=== PATIENT | female | born 1990 | race African-American/Black ===

== ENCOUNTER 2020-10-11 17:40 | Inpatient (IN) | payer OTHER ==
[2020-10-11] MEDS ORDERED: PROMETHAZINE HCL 25 MG/1 ML VIAL IVPB PRN (18:18)
[2020-10-11] MEDS ORDERED: DINOPROSTONE 10 MG VAGINAL SUPPOSITORY VG ONE (18:18)
[2020-10-11] MEDS ORDERED: ONDANSETRON 4 MG/2 ML VIAL IM PRN (18:18)
[2020-10-11] MEDS ORDERED: BUTORPHANOL TARTRATE 1 MG/ML VIAL IVPB PRN (18:18)
[2020-10-11 19:00] VITALS: BMI 32.5
[2020-10-11 20:03] LABS: BASO % 0.2 % (0-2.0); HEMATOCRIT 37.1 % (32.4-45.2); HEMOGLOBIN 12.2 GM/dL (10.7-15.3); LYMPH % 13.5 % (8-40); MCH 27.9 pg (25.7-33.7); MCHC 32.9 g/dl (32.0-36.0); MEAN CELL VOLUME 84.8 fl (80-96); MEAN PLT VOLUME 10.3 fl (7.5-11.1); MONO % 6.2 % (3.8-10.2); NEUT % 79.1 % (42.8-82.8); PLATELET COUNT 221 K/MM3 (134-434); RBC 4.38 M/mm3 (3.60-5.2); RDW 16.1 % (11.6-15.6); WHITE BLOOD COUNT 10.3 K/mm3 (4.0-10.0)
[2020-10-11 20:12] LABS: INR 1.03 (0.83-1.09); PROTHROMBIN TIME (PATIENT) 12.6 SEC (9.7-13.0)
[2020-10-11 20:15] LABS: ACTIVATED PTT 31.5 SECONDS (25.2-36.5)
[2020-10-11 20:22] LABS: POTASSIUM 4.7 mmol/L (3.5-5.1)
[2020-10-11 20:24] LABS: BLOOD UREA NITROGEN 8.4 mg/dL (7-18); CALCIUM 9.2 mg/dL (8.5-10.1)
[2020-10-11 20:27] LABS: CREATININE 0.6 mg/dL (0.55-1.3)
[2020-10-12] MEDS: ELECTROLYTE-148 SOLN 1,000 ML IV SCH
[2020-10-12 03:33] LABS: COCAINE, UR NEGATIVE ng/ml (CUTOFF=300)
[2020-10-12 03:38] LABS: METHADONE, UR NEGATIVE ng/ml (CUTOFF=300); OPIATES, URI NEGATIVE ng/ml (CUTOFF=300); PHENCYCLIDINE,URINE NEGATIVE ng/ml (CUTOFF=25); URINE AMPHETAMINES NEGATIVE ng/ml (CUTOFF=500); URINE BARBITURATES NEGATIVE ng/ml (CUTOFF=200); URINE BENZODIAZEPINES NEGATIVE ng/ml (CUTOFF=200)
[2020-10-12] MEDS ORDERED: DINOPROSTONE 10 MG VAGINAL SUPPOSITORY VG ONE (09:45)
[2020-10-12] MEDS ORDERED: CITRIC ACID/SODIUM CITRATE 30 ML UNIT-DOSE CUP PO ONE (20:42)
[2020-10-12] MEDS ORDERED: ELECTROLYTE-148 SOLN 1,000 ML IV SCH (20:45)
[2020-10-12] MEDS ORDERED: morphine SULFATE/PF 0.5 MG/ML (2cc Syringe - QUVA) ONE (21:16)
[2020-10-12] MEDS ORDERED: OXYTOCIN 20 UNITS in 0.9% NS 20 UNIT/1,000 ML INFUS.BAG IV ONE (22:27)
[2020-10-12 22:41] LABS: CORD HCO3 26.1 mmHg (20-29); CORD PCO2 64.9 mmHg (30-78); CORD pH 7.222 (7.14-7.44)
[2020-10-12 22:43] LABS: CORD BASE EXCESS -1.8 mmol/L (0-2); CORD HCO3 25.7 mmHg (20-29); CORD pH 7.295 (7.14-7.44)
[2020-10-12] MEDS ORDERED: WITCH HAZEL 50% (TUCKS) 40 PAD/JAR PAD TP PRN (23:08)
[2020-10-12] MEDS ORDERED: diphenhydrAMINE HCL 25 MG CAPSULE (FP) PO PRN (23:08)
[2020-10-12] MEDS ORDERED: METHYLERGONOVINE MALEATE 0.2 MG/1 ML AMP IM PRN (23:08)
[2020-10-12] MEDS ORDERED: BENZOCAINE 20% 57 GM BOTTLE TP PRN (23:08)
[2020-10-12] MEDS ORDERED: oxyCODONE HCL 5 MG TABLET PO PRN (23:08)
[2020-10-12] MEDS ORDERED: BENZOCAINE 28 GM HEMORRHOIDAL OINTMENT PR PRN (23:08)
[2020-10-12] MEDS ORDERED: OXYTOCIN 20 UNITS in 0.9% NS 20 UNIT/1,000 ML INFUS.BAG IV SCH (23:15)
[2020-10-12] MEDS ORDERED: DEXTROSE 5%-LACTATED RINGERS 1,000 ML IV SCH (23:15)
[2020-10-12] MEDS ORDERED: IBUPROFEN 800 MG/8 ML IJ IVPB ONE (23:40)
[2020-10-12] MEDS: IBUPROFEN 800 MG/8 ML IJ IVPB PRN (23:45)
[2020-10-13] MEDS: ELECTROLYTE-148 SOLN 1,000 ML IV SCH (00:46)
[2020-10-13] MEDS: OXYTOCIN 20 UNITS in 0.9% NS 20 UNIT/1,000 ML INFUS.BAG IV SCH ×2 (00:47→05:59)
[2020-10-13] MEDS ORDERED: ONDANSETRON 4 MG/2 ML VIAL IVPUSH PRN (00:48)
[2020-10-13] MEDS: CEFAZOLIN 1 GM/D5W 1 GM/50 ML BAG IVPB SCH ×2 (02:05→10:37)
[2020-10-13] MEDS ORDERED: ACETAMINOPHEN 1000 MG/100 ML VIAL (NON FORMULARY) IVPB ONE (03:15)
[2020-10-13] MEDS: IBUPROFEN 800 MG/8 ML IJ IVPB PRN (05:58)
[2020-10-13] MEDS: SIMETHICONE 80 MG TAB.CHEW (FP) PO PRN ×3 (08:50→21:18)
[2020-10-13] MEDS: ENOXAPARIN NA (PORCINE) 40 MG/0.4 ML DISP.SYRIN SQ SCH (10:36)
[2020-10-13 13:39] LABS: BASO % 0.3 % (0-2.0); EOS % 0.8 % (0-4.5); HEMATOCRIT 33.4 % (32.4-45.2); HEMOGLOBIN 11.1 GM/dL (10.7-15.3); LYMPH % 13.4 % (8-40); MCH 27.9 pg (25.7-33.7); MCHC 33.3 g/dl (32.0-36.0); MEAN CELL VOLUME 83.8 fl (80-96); MEAN PLT VOLUME 9.2 fl (7.5-11.1); MONO % 6.7 % (3.8-10.2); NEUT % 78.8 % (42.8-82.8); PLATELET COUNT 197 K/MM3 (134-434); RBC 3.99 M/mm3 (3.60-5.2); RDW 16.1 % (11.6-15.6); WHITE BLOOD COUNT 9.7 K/mm3 (4.0-10.0)
[2020-10-13] MEDS: ACETAMINOPHEN 325 MG TABLET (FP) PO PRN ×2 (14:00→21:17)
[2020-10-13] MEDS: IBUPROFEN 600 MG TABLET (FP) PO PRN ×2 (14:00→21:17)
[2020-10-13] MEDS: oxyCODONE HCL 5 MG TABLET PO PRN (22:08)
[2020-10-13] MEDS ORDERED: BISACODYL 10 MG SUPP.RECT PR PRN (23:09)
[2020-10-14] MEDS: ACETAMINOPHEN 325 MG TABLET (FP) PO PRN ×4 (02:08→21:23)
[2020-10-14] MEDS: SIMETHICONE 80 MG TAB.CHEW (FP) PO PRN ×4 (02:08→21:21)
[2020-10-14] MEDS: IBUPROFEN 600 MG TABLET (FP) PO PRN ×3 (03:38→21:22)
[2020-10-14] MEDS: ENOXAPARIN NA (PORCINE) 40 MG/0.4 ML DISP.SYRIN SQ SCH (10:57)
[2020-10-14] MEDS: oxyCODONE HCL 5 MG TABLET PO PRN ×2 (17:30→21:21)
[2020-10-14] MEDS: SENNOSIDES/DOCUSATE COMBO (SENNA PLUS) TABLET (UD) PO PRN (21:20)
[2020-10-15] MEDS: SIMETHICONE 80 MG TAB.CHEW (FP) PO PRN ×4 (06:03→21:04)
[2020-10-15] MEDS: ACETAMINOPHEN 325 MG TABLET (FP) PO PRN ×4 (06:04→21:03)
[2020-10-15] MEDS: oxyCODONE HCL 5 MG TABLET PO PRN (06:05)
[2020-10-15 09:13] LABS: BASO % 0.6 % (0-2.0); EOS % 2.3 % (0-4.5); HEMATOCRIT 33.6 % (32.4-45.2); MCH 27.6 pg (25.7-33.7); MCHC 32.8 g/dl (32.0-36.0); MEAN CELL VOLUME 84.3 fl (80-96); MEAN PLT VOLUME 9.3 fl (7.5-11.1); MONO % 6.4 % (3.8-10.2); NEUT % 72.7 % (42.8-82.8); PLATELET COUNT 222 K/MM3 (134-434); RBC 3.98 M/mm3 (3.60-5.2); RDW 15.8 % (11.6-15.6); WHITE BLOOD COUNT 8.3 K/mm3 (4.0-10.0)
[2020-10-15] MEDS: ENOXAPARIN NA (PORCINE) 40 MG/0.4 ML DISP.SYRIN SQ SCH (10:29)
[2020-10-15] MEDS: IBUPROFEN 600 MG TABLET (FP) PO PRN ×3 (10:30→21:03)
[2020-10-15] MEDS: SENNOSIDES/DOCUSATE COMBO (SENNA PLUS) TABLET (UD) PO PRN (21:02)
[2020-10-16] MEDS: ENOXAPARIN NA (PORCINE) 40 MG/0.4 ML DISP.SYRIN SQ SCH (09:13)
[2020-10-16] MEDS: SIMETHICONE 80 MG TAB.CHEW (FP) PO PRN (09:13)
[2020-10-16] MEDS: IBUPROFEN 600 MG TABLET (FP) PO PRN (09:13)
[2020-10-16] MEDS: ACETAMINOPHEN 325 MG TABLET (FP) PO PRN (09:14)
[2020-10-16 10:30] VITALS: BP 110/65; PULSE 81; TEMP 98.1
== END 2020-10-16 12:00 | disposition home or self-care (01) | DRG 540 ==
LOC: JLDR 17:40 → J3W 10-13 00:09
PROVIDERS: ADMIT Obstetrics & Gynecology; ATTEND Obstetrics & Gynecology
PROC: 3E0P7VZ Introduction of Hormone into Female Reproductive, Via Natural or Artificial Opening (ICD-10-PCS; 2020-10-11)
PROC: 10D00Z1 Extraction of Products of Conception, Low, Open Approach (ICD-10-PCS; principal; 2020-10-12)
PROC: 10907ZC Drainage of Amniotic Fluid, Therapeutic from Products of Conception, Via Natural or Artificial Opening (ICD-10-PCS; 2020-10-12)
DX: O61.0 Failed medical induction of labor (principal); O48.0 Post-term pregnancy; O99.324 Drug use complicating childbirth; F12.90 Cannabis use, unspecified, uncomplicated; O77.0 Labor and delivery complicated by meconium in amniotic fluid; O99.334 Smoking (tobacco) complicating childbirth; F17.210 Nicotine dependence, cigarettes, uncomplicated; Z86.59 Personal history of other mental and behavioral disorders; Z86.19 Personal history of other infectious and parasitic diseases; Z87.42 Personal history of other diseases of the female genital tract; Z3A.41 41 weeks gestation of pregnancy; Z37.0 Single live birth
CPT/HCPCS: 36415; 36600; 80048; 80307; 82803; 85025; 85461; 85610; 85730; 86780; 86850; 86900; 86901; 86999; 88307-TC; C9803; J0131; U0003